=== PATIENT | male | born 1985 | race Caucasian/White ===

== ENCOUNTER 2021-10-27 09:29 | Emergency (ER) | payer MEDICAID ==
[~2021-10-27] VITALS: Ht 165.1 cm; Wt 69.0 kg
[2021-10-27] MEDS ORDERED: [UNRECOGNIZED DRUG - CODE] MT (10:31)
[2021-10-27] MEDS ORDERED: METH-653 MT (11:07)
[2021-10-27] MEDS ORDERED: LIDO1ADH5 TP (11:07)
[2021-10-27] MEDS ORDERED: IBUP-2028 MT (11:07)
[2021-10-27 11:13] VITALS: BP 124/75
== END 2021-10-27 11:15 | disposition home or self-care (01) ==
LOC: ER 09:29
DX: L81.9 Disorder of pigmentation, unspecified (principal); M54.9 Dorsalgia, unspecified
CPT/HCPCS: 82962; 99283